=== PATIENT | female | born 1970 | race Caucasian/White ===

== ENCOUNTER 2017-02-09 21:56 | Emergency (ER) | payer OTHER ==
--- NOTE | 2017-02-09 23:00 | ED Physician Documentation ---
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 She was having fevers, las week, Tmax 102, but not for the past few days Review of Systems Constitutional: reports: Fever, Chills, Sweats Nose: reports: Rhinorrhea / runny nose, Congestion, Sinus pressure / pain Throat: reports: Sore throat Cardiac: reports: Reviewed and negative Respiratory: reports: Dyspnea, Cough GI: reports: Vomiting. denies: Abdominal Pain, Nausea PD PAST MEDICAL HISTORY - Past Medical History Past Medical History: Yes Musculoskeletal: Osteoarthritis, Rheumatoid arthritis, Other - Past Surgical History Past Surgical History: Yes General: Other Ortho: Other - Present Medications Home Medications: Ambulatory Orders Medication Instructions Recorded Confirmed Azithromycin [Zithromax] 250 mg PO DAILY #4 tablet 02/10/17 guaiFENesin/CODEINE [Robitussin AC] 5 - 10 ml PO Q6H PRN #100 udc 02/10/17 - Allergies Allergies/Adverse Reactions: Allergies Allergy/AdvReac Type Severity Reaction Status Date / Time bee venom protein (honey bee) Allergy Anaphylaxis Verified 02/09/17 23:22 hornet venom Allergy Anaphylaxis Verified 02/09/17 23:22 - Social History Does the pt smoke?: No Smoking Status: Never smoker Does the pt drink ETOH?: No Does the pt have substance abuse?: No - Immunizations Immunizations are current?: Yes - POLST Patient has POLST: No PD ED PE NORMAL - Vitals Vital signs reviewed: Yes - General General: Alert and oriented X 3, Well developed/nourished, Other (frequent coughing during H+P) - HEENT HEENT: PERRL, EOMI, Ears normal, Moist mucous membranes, Pharynx benign, Other ( right eye mild conjunctival injection) - Neck Neck: Supple, no meningeal sign - Cardiac Cardiac: RRR, No murmur - Respiratory Respiratory: No respiratory distress, Clear bilaterally - Abdomen Abdomen: Soft, Non tender - Derm Derm: Normal color, Warm and dry - Extremities Extremities: No edema Results - Vitals Vitals: Vital Signs - 24 hr 02/09/17 02/09/17 02/10/17 22:01 22:17 00:21 Temperature 36.8 C Heart Rate 104 H 99 113 H Respiratory 24 18 18 Rate Blood Pressure 133/61 H 128/60 O2 Saturation 99 96 100 02/10/17 00:24 Temperature Heart Rate 100 Respiratory 20 Rate Blood Pressure O2 Saturation 100 Oxygen O2 Source Room air - Rads (name of study) chest xray Radiology: Prelim report reviewed, See rad report PD MEDICAL DECISION MAKING - ED course Complexity details: reviewed results, re-evaluated patient, considered differential, d/w patient Departure - Departure Disposition: 01 Home, Self Care Clinical Impression: Sinusitis, Pneumonia Condition: Good Instructions: ED Pneumonia Adult Follow-Up: CAPRICE GONZALEZ [Primary Care Provider] - (3-5 days if not improved) Prescriptions: guaiFENesin/CODEINE [Robitussin AC] 5 - 10 ml PO Q6H PRN #100 udc PRN Reason: Cough Azithromycin [Zithromax] 250 mg PO DAILY #4 tablet Discharge Date/Time: 02/10/17 01:03
[2017-02-09] MEDS ORDERED: guaiFENesin/CODEINE 5 ML UDC PO STA (23:18)
[2017-02-09] MEDS ORDERED: guaiFENesin/CODEINE 5 ML UDC ONE (23:20)
--- NOTE | 2017-02-09 23:53 | XRAY Preliminary Report ---
Exam: XR Chest 2 View PA/LAT IMPRESSION: Normal single view chest x-ray. [facility] SITE ID: [id number]
--- NOTE | 2017-02-09 23:56 | XRAY Report ---
EXAM: CHEST RADIOGRAPHY EXAM DATE: 02/09/2017 11:43 PM. CLINICAL HISTORY: Dyspnea, cough. COMPARISON: None. TECHNIQUE: 1 views. FINDINGS: Lungs/Pleura: No focal opacities evident. No pleural effusion. No pneumothorax. Normal volumes. Mediastinum: Heart and mediastinal contours are unremarkable. Other: None. IMPRESSION: Normal single view chest x-ray. [facility] Referring Provider Line: [phone] SITE ID: [id number]
[2017-02-10 00:23] VITALS: BP 128/60
[2017-02-10] MEDS ORDERED: AZITHROMYCIN 250 MG TABLET PO STA (00:58)
[2017-02-10] MEDS ORDERED: AZITHROMYCIN 250 MG TABLET PO ONE (01:00)
== END 2017-02-10 01:03 | disposition home or self-care (01) ==
LOC: ED 21:56
DX: J18.9 Pneumonia, unspecified organism (principal); J32.9 Chronic sinusitis, unspecified
CPT/HCPCS: 71020; 99283; A9270

== ENCOUNTER 2018-08-17 13:10 | Emergency (ER) | payer OTHER ==
[2018-08-17] MEDS ORDERED: METHOCARBAMOL 500 MG TABLET PO STA (13:41)
[2018-08-17] MEDS ORDERED: KETOROLAC 30 MG/ML VIAL IM STA (13:41)
[2018-08-17] MEDS ORDERED: HYDROmorphone 2 MG/ML VIAL IM STA (13:41)
[2018-08-17] MEDS ORDERED: DEXAMETHASONE 10 MG/ML VIAL PO STA (13:41)
[2018-08-17] MEDS ORDERED: ACETAMINOPHEN 325 MG TABLET PO STA (13:42)
--- NOTE | 2018-08-17 14:33 | ED Physician Documentation ---
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 No: Prior back surgery Similar symptoms before: Diagnosis (low back strain) Recently seen: Not recently seen Review of Systems Constitutional: denies: Fever, Myalgias Nose: denies: Rhinorrhea / runny nose, Congestion Throat: denies: Sore throat Respiratory: denies: Cough GI: denies: Vomiting, Diarrhea Skin: denies: Rash, Lesions Neurologic: denies: Focal weakness, Numbness, Headache PD PAST MEDICAL HISTORY - Past Medical History Past Medical History: Yes Musculoskeletal: Osteoarthritis, Rheumatoid arthritis, Other - Past Surgical History Past Surgical History: Yes General: Other Ortho: Other - Present Medications Home Medications: Ambulatory Orders Medication Instructions Recorded Confirmed Dexamethasone [Decadron] 4 mg PO DAILY #5 tablet 08/17/18 Hydrocodone/Acetaminophen [[place] 1 each PO Q6H PRN #20 tablet 08/17/18 5-325 Tablet] Methocarbamol [Robaxin] 500 mg PO Q6H PRN #30 tablet 08/17/18 Naproxen 500 mg PO BID #20 tablet 08/17/18 - Allergies Allergies/Adverse Reactions: Allergies Allergy/AdvReac Type Severity Reaction Status Date / Time bee venom protein (honey bee) Allergy Anaphylaxis Verified 08/17/18 13:18 hornet venom Allergy Anaphylaxis Verified 08/17/18 13:18 - Social History Does the pt smoke?: No Smoking Status: Never smoker Does the pt drink ETOH?: No Does the pt have substance abuse?: No - Immunizations Immunizations are current?: Yes - POLST Patient has POLST: No PD ED PE NORMAL - Vitals Vital signs reviewed: Yes - General General: Alert and oriented X 3, Well developed/nourished, Other (appears uncomfortable and has guarded low back motion. ) - Cardiac Cardiac: RRR, No murmur - Respiratory Respiratory: Clear bilaterally - Abdomen Abdomen: Soft, Non tender - Back Back: No CVA TTP, No spinal TTP, Other (tender lower back soft tissue both sides in lumbar area. ) - Derm Derm: Normal color, Warm and dry, No rash - Extremities Extremities: No tenderness to palpate, Normal ROM s pain, No edema, No calf tenderness / cord - Neuro Neuro: Alert and oriented X 3, No motor deficit, No sensory deficit, Normal speech Results - Vitals Vitals: Vital Signs - 24 hr 08/17/18 08/17/18 13:16 14:34 Temperature 36.7 C Heart Rate 79 76 Respiratory 18 15 Rate Blood Pressure 120/53 L 105/70 O2 Saturation 99 99 Oxygen O2 Source Room air PD MEDICAL DECISION MAKING - ED course Complexity details: re-evaluated patient (pain lessened with meds. ), considered differential (seems muscle strain vs disc process. No indication for imaging emergently. ), d/w patient Departure - Departure Disposition: Home, Self Care Clinical Impression: Low back strain Qualifiers: Encounter type: initial encounter Qualified Code(s): S39.012A - Strain of muscle, fascia and tendon of lower back, initial encounter Condition: Stable Record reviewed to determine appropriate education?: Yes Instructions: ED Sprain Strain Lumbar Follow-Up: Juan Barber ARNP [Primary Care Provider] - Prescriptions: Dexamethasone [Decadron] 4 mg PO DAILY #5 tablet Hydrocodone/Acetaminophen [[place] 5-325 Tablet] 1 each PO Q6H PRN #20 tablet PRN Reason: Pain Methocarbamol [Robaxin] 500 mg PO Q6H PRN #30 tablet PRN Reason: Spasms Naproxen 500 mg PO BID #20 tablet Comments: Heat and gentle stretching for the low back. Minimize activity for the next few days until improved. Naproxen twice daily for the next 7-10 days. Decadron steroid anti-inflammatory daily for 5 more days. Methocarbamol as a muscle relaxant and use it every 6-8 hours if needed for spasms. Add Tylenol or hydrocodone if needed for worse pain. Recheck if not improving over the next several days to a week. If not improving, may need to change medicines or add physical therapy. Meanwhile massage or chiropractic are good treatments as well. Discharge Date/Time: 08/17/18 14:50
[2018-08-17 14:35] VITALS: BP 105/70
== END 2018-08-17 14:50 | disposition home or self-care (01) ==
LOC: ED 13:10
DX: S39.012A Strain of muscle, fascia and tendon of lower back, initial encounter (principal); X50.9XXA Other and unspecified overexertion or strenuous movements or postures, initial encounter; Y93.89 Activity, other specified; Y99.0 Civilian activity done for income or pay
CPT/HCPCS: 96372; 99283; A9270; J1170

== ENCOUNTER 2018-12-24 21:31 | Emergency (ER) | payer OTHER ==
--- NOTE | 2018-12-24 21:52 | ED Physician Documentation ---
PD HPI LOWER EXT INJURY - Stated complaint Stated Complaint: R FOOT PX - Chief complaint Chief Complaint: Ext Problem - History obtained from History obtained from: Patient - History of Present Illness PD HPI LOW EXT INJURY LOCATION: Right (She dropped a drill in the proximal right foot at home at about 6 PM and has moderate to severe pain there and declines pain medications. She can walk.) Review of Systems Constitutional: reports: Reviewed and negative Cardiac: reports: Reviewed and negative Respiratory: reports: Reviewed and negative PD PAST MEDICAL HISTORY - Past Medical History Musculoskeletal: Osteoarthritis, Rheumatoid arthritis, Other - Past Surgical History Past Surgical History: Yes General: Other Ortho: Other - Present Medications Home Medications: Ambulatory Orders Medication Instructions Recorded Confirmed No Known Home Medications 12/24/18 12/24/18 - Allergies Allergies/Adverse Reactions: Allergies Allergy/AdvReac Type Severity Reaction Status Date / Time bee venom protein (honey bee) Allergy Anaphylaxis Verified 12/24/18 21:37 hornet venom Allergy Anaphylaxis Verified 12/24/18 21:37 - Social History Does the pt smoke?: No Smoking Status: Never smoker Does the pt drink ETOH?: No Does the pt have substance abuse?: No - Immunizations Immunizations are current?: Yes - POLST Patient has POLST: No PD ED PE NORMAL - Vitals Vital signs reviewed: Yes - General General: Alert and oriented X 3, No acute distress - Neck Neck: Supple, no meningeal sign, No bony TTP - Extremities Extremities: Other (She has kind of diffuse tenderness over the foot, she points the proximal first metatarsal as the area of the worst pain, there is no obvious swelling or deformity.) - Neuro Neuro: Alert and oriented X 3, Normal speech - Psych Psych: Normal mood Results - Vitals Vitals: Vital Signs - 24 hr 12/24/18 21:34 Temperature 36.5 C Heart Rate 94 Respiratory 18 Rate Blood Pressure 112/72 O2 Saturation 100 Oxygen O2 Source Room air - Rads (name of study) R foot 3v Radiology: EMP read contemporaneously (NAD) Departure - Departure Disposition: 01 Home, Self Care Clinical Impression: Contusion of right foot Qualifiers: Encounter type: initial encounter Qualified Code(s): S90.31XA - Contusion of right foot, initial encounter Condition: Good Record reviewed to determine appropriate education?: Yes Instructions: ED Contusion Foot Comments: Ibuprofen as needed for pain. You can walk and bear weight as tolerated. Follow-up with your doctor in 1-2 weeks if still symptomatic.
--- NOTE | 2018-12-24 22:20 | XRAY Report ---
Reason: foot injury Procedure Date: 12/24/2018 Accession Number: [id number] / [id number] Procedure: XR - Foot 3 View RT CPT Code: FULL RESULT: EXAM: RIGHT FOOT RADIOGRAPHY EXAM DATE: 12/24/2018 09:59 PM. CLINICAL HISTORY: Foot injury. COMPARISON: None available. TECHNIQUE: 3 views. FINDINGS: Bones: No acute fracture or dislocation. There are accessory ossicles adjacent to the navicular and cuboid. Small degenerative calcaneal spurring at the plantar and posterior surfaces. Joints: No ankle joint effusion. No significant degenerative joint disease. Soft Tissues: Unremarkable. No radiopaque foreign body. IMPRESSION: No acute fracture or dislocation of the right foot. [facility]
[2018-12-24 22:27] VITALS: BP 116/77
== END 2018-12-24 22:27 | disposition home or self-care (01) ==
LOC: ED 21:31
DX: S90.31XA Contusion of right foot, initial encounter (principal); W22.8XXA Striking against or struck by other objects, initial encounter; Y92.009 Unspecified place in unspecified non-institutional (private) residence as the place of occurrence of the external cause; M06.9 Rheumatoid arthritis, unspecified
CPT/HCPCS: 99282; 99283

== ENCOUNTER 2019-12-08 16:46 | Outpatient (CLI) | payer OTHER | END 2019-12-08 16:47 | disposition home or self-care (01) | LOC: COV 16:46 | PROVIDERS: ATTEND Family Medicine | DX: R05 Cough (principal); R50.9 Fever, unspecified | CPT/HCPCS: 81599 ==

== ENCOUNTER 2019-12-10 17:10 | Outpatient (CLI) | payer OTHER | END 2019-12-10 17:11 | disposition home or self-care (01) | LOC: COV 17:10 | PROVIDERS: ATTEND Family Medicine | DX: R05 Cough (principal); R50.9 Fever, unspecified ==

== ENCOUNTER 2022-10-10 16:34 | Emergency (ER) | payer OTHER ==
--- NOTE | 2022-10-10 17:04 | ED Physician Documentation ---
PD HPI MAJOR TRAUMA - Stated complaint Stated Complaint: FALL DOWN STAIRS - Chief complaint Chief Complaint: Trauma Ext - History obtained from History obtained from: Patient - Additional information Additional information: Caught left toe while taking out the trash and went down on ankle/knee/hip, all L side..Pain is severe in all areas. No other injuries. PD PAST MEDICAL HISTORY - Past Medical History Musculoskeletal: Osteoarthritis, Rheumatoid arthritis, Other - Past Surgical History Past Surgical History: Yes General: Other Ortho: Other - Present Medications Home Medications: Ambulatory Orders Medication Instructions Recorded Confirmed Amox/Clav 875/125 [Augmentin] 1 each PO Q12H #20 tablet 04/20/22 Azithromycin [Zithromax] 0 mg PO DAILY #6 tablet 04/20/22 Benzonatate [Tessalon] 200 mg PO TID PRN #20 cap 04/20/22 Oxycodone HCl/Acetaminophen 1 - 2 each PO Q6H PRN #14 tablet 10/10/22 [Percocet 5-325 mg Tablet] - Allergies Allergies/Adverse Reactions: Allergies Allergy/AdvReac Type Severity Reaction Status Date / Time bee venom protein (honey bee) Allergy Anaphylaxis Verified 10/10/22 16:36 hornet venom Allergy Anaphylaxis Verified 10/10/22 16:36 - Social History Does the pt smoke?: No Smoking Status: Never smoker Does the pt drink ETOH?: No Does the pt have substance abuse?: No - Immunizations Immunizations are current?: Yes - POLST Patient has POLST: No PD ED PE NORMAL - Vitals Vital signs reviewed: Yes - General General: Alert and oriented X 3, No acute distress - HEENT HEENT: PERRL, EOMI - Neck Neck: Supple, no meningeal sign, No bony TTP - Abdomen Abdomen: Non tender - Back Back: No spinal TTP - Extremities Extremities: Other (Tender to the lateral malleolus of the left ankle, no foot tenderness. She is quite tender over the proximal fibula and anterior knee and left hip as well and cannot range any of them. No tenderness of the mid tibia on the left.) - Neuro Neuro: Alert and oriented X 3, Normal speech Results - Vitals Vitals: Vital Signs - 24 hr 10/10/22 10/10/22 10/10/22 16:36 18:58 19:20 Temperature 36.5 C Heart Rate 78 62 57 L Respiratory 18 15 Rate Blood Pressure 127/52 L 112/83 H 102/57 L O2 Saturation 100 94 96 Oxygen O2 Source Room air PD Medical Decision Making - ED course ED course: 52-year-old woman presents after a fall, predominantly left leg injuries with negative x-rays. Still a lot of pain after oxycodone and was medicated with Dilaudid. Toradol had also been ordered but she had a vagal reaction with the Dilaudid and as such further injections were held. At about 7:45 PM she was pain-free and passed road test with a walker. She had some nausea from the Dilaudid but declined medication for that. Departure - Departure Disposition: 01 Home, Self Care Clinical Impression: Strain of left hip Qualifiers: Encounter type: initial encounter Qualified Code(s): S76.012A - Strain of muscle, fascia and tendon of left hip, initial encounter Left ankle sprain Qualifiers: Encounter type: initial encounter Involved ligament of ankle: unspecified ligament Qualified Code(s): S93.402A - Sprain of unspecified ligament of left ankle, initial encounter Left knee sprain Qualifiers: Encounter type: initial encounter Involved ligament of knee: unspecified ligament Qualified Code(s): S83.92XA - Sprain of unspecified site of left knee, initial encounter Condition: Good Record reviewed to determine appropriate education?: Yes Instructions: ED Sprain Knee, ED Sprain Ankle W X Ray, ED Sprain Hip Prescriptions: Oxycodone HCl/Acetaminophen [Percocet 5-325 mg Tablet] 1 - 2 each PO Q6H PRN #14 tablet PRN Reason: pain Comments: If not significantly, significantly better in a week please follow-up with your primary care physician for reexamination and consideration for repeat imaging. Return for new or worsening symptoms. I sent prescription electronically to [facility] in [place]. I am prescribing a short course of narcotic pain medication for you. These are potentially dangerous and addictive medications that should be used carefully. These medications may constipate you. Take an kerb-yun-xzrnlxy stool softener (docusate) twice daily with plenty of water while taking these medications. If you go 24 hours without a bowel movement, take ojsu-dbf-xxeokvs miralax, per package instructions. Do not drink or drive while taking these medications. If you received narcotic or sedating medications while in the emergency department, do not drive for 24 hours. Store this medication in a safe, secure place and out of reach of children. It is a violation of federal law to give or sell this medication to another person or to use in a manner other than prescribed. The ED will not refill narcotic prescriptions, including prescriptions lost or stolen. To dispose of unwanted medications: 1. [facility] at [address] in [place] has a medication drop box. They accept prescription medications (in pill form) Sunday through Sunday 9:00 a.m. to 5:00 p.m. 2. The [facility] [employer] accepts prescription medications (in pill form only) for disposal year round. Call for more information. 3. Contact the [facility] for the next [facility] sponsored prescription drug collection event. , [phone], or [phone]; Note that many narcotic pain relievers also contain Tylenol/acetaminophen. Please ensure that your total dose of acetaminophen from all sources does not exceed 3 g (3000 mg) per day.
[2022-10-10] MEDS ORDERED: oxyCODONE 5 MG TABLET PO STA (17:06)
--- NOTE | 2022-10-10 18:12 | XRAY Report ---
PROCEDURE: Ankle 3 View LT INDICATIONS: fall knee/ankle inj TECHNIQUE: 3 views of the ankle were acquired. COMPARISON: None FINDINGS: Bones: No fractures or dislocations. Ankle mortise is normally aligned. No suspicious bony lesions . Soft tissues: No tibiotalar joint effusion. Achilles tendon appears normal. IMPRESSION: No visualized acute fracture or dislocation. However, occult injury cannot be excluded. Recommend short interval imaging follow-up in 7-10 days as clinically indicated for additional evalua tion. Reviewed by: Lynda Elmore MD on 10/10/2022 6:10 PM [facility] Approved by: Lynda Elmore MD on 10/10/2022 6:10 PM [facility] Station ID: [id number]
--- NOTE | 2022-10-10 18:12 | XRAY Report ---
PROCEDURE: Knee 4 View LT INDICATIONS: fall knee/ankle inj TECHNIQUE: 4 views of the left knee(s) were acquired. COMPARISON: None. FINDINGS: Bones: No fractures or dislocations. No suspicious bony lesions. Soft tissues: No joint effusion. No suspicious soft tissue calcifications. IMPRESSION: No visualized acute fracture or dislocation. However, occult injury cannot be excluded. Recommend short interval imaging follow-up in 7-10 days as clinically indicated for additional evalua tion. Reviewed by: Lynda Elmore MD on 10/10/2022 6:11 PM PST Approved by: Lynda Elmore MD on 10/10/2022 6:11 PM PST Station ID: [id number]
--- NOTE | 2022-10-10 18:13 | XRAY Report ---
PROCEDURE: Hip w/Pelvis 2-3V LT INDICATIONS: fall knee/ankle inj TECHNIQUE: AP pelvis with lateral view(s) of the left hip(s). COMPARISON: None. FINDINGS: Bones: No fractures or dislocations. Pelvic ring appears intact. No suspicious bony lesions. Soft tissues: The visualized bowel gas pattern is normal. No suspicious soft tissue calcifications. IMPRESSION: No visualized acute fracture or dislocation. However, occult injury cannot be excluded. Recommend short interval imaging follow-up in 7-10 days as clinically indicated for additional evalua tion. Reviewed by: Lynda Elmore MD on 10/10/2022 6:12 PM PST Approved by: Lynda Elmore MD on 10/10/2022 6:12 PM PST Station ID: [id number]
[2022-10-10] MEDS ORDERED: KETOROLAC 60 MG/2 ML VIAL IM STA (18:25)
[2022-10-10] MEDS ORDERED: HYDROmorphone 1 MG/ML CARPUJECT IM STA (18:25)
[2022-10-10 19:49] VITALS: BP 100/65
[2022-10-10] MEDS ORDERED: oxyCODONE/ACET 5/325 Prepack 4 PO STA (19:50)
[2022-10-10] MEDS ORDERED: ONDANSETRON ODT 4 MG TABLET TL STA (19:58)
== END 2022-10-10 20:18 | disposition home or self-care (01) ==
LOC: ED 16:34
DX: S76.012A Strain of muscle, fascia and tendon of left hip, initial encounter (principal); S93.402A Sprain of unspecified ligament of left ankle, initial encounter; S83.92XA Sprain of unspecified site of left knee, initial encounter; W10.9XXA Fall (on) (from) unspecified stairs and steps, initial encounter
CPT/HCPCS: 73502; 73564; 73610; 96372; 99283; 99284; A9270; J1170; Q0162

== ENCOUNTER 2023-11-03 07:45 | Outpatient (CLI) | payer OTHER | END 2023-11-03 07:46 | disposition critical access hospital (66) | LOC: EMS 07:45 | DX: M79.662 Pain in left lower leg (principal); M79.89 Other specified soft tissue disorders; R20.8 Other disturbances of skin sensation; R20.0 Anesthesia of skin; R07.9 Chest pain, unspecified; R42 Dizziness and giddiness | CPT/HCPCS: A0425; A0429 ==

== ENCOUNTER 2023-11-03 08:03 | Emergency (ER) | payer OTHER ==
--- NOTE | 2023-11-03 08:23 | ED Physician Documentation ---
History of Present Illness - Stated complaint Stated Complaint: L LEG PX/SWELLING - Chief complaint Chief Complaint: Ext Problem - History obtained from History obtained from: Patient, EMS - History of Present Illness Timing: Last night - Additonal information Additional information: Anaid Laurent is a 53-year-old female with a history of rheumatoid arthritis who presents this morning with the acute onset of left leg pain and swelling that extends from her hip to her toes. She is having enough pain that she is having difficulty walking on her left leg. She has not had this happen to her previously. She is having some intermittent chest pains as well. Symptoms started last night. She denies any prior similar history she denies any period of confinement or recent injury to the area. She has a family history of breast cancer she has had a normal mammogram 2 years ago. She has a negative review of systems with the exception of some pelvic cramping which she attributes to menses. Review of Systems Constitutional: denies: Fever, Chills, Myalgias Eyes: denies: Decreased vision Ears: reports: Ear pain (Intense left ear pain after a sneeze several days ago resolved.) Nose: denies: Rhinorrhea / runny nose, Congestion Throat: denies: Sore throat Cardiac: reports: Chest pain / pressure (Intermittent sharp chest pains nonspecific) Respiratory: denies: Dyspnea, Cough GI: reports: Abdominal Pain (Mild cramping left lower quadrant similar to menstrual cramps). denies: Nausea, Vomiting : denies: Dysuria, Frequency Skin: denies: Rash Musculoskeletal: reports: Extremity pain, Extremity swelling, Pain with weight bearing. denies: Neck pain, Back pain Neurologic: denies: Generalized weakness, Focal weakness, Numbness PD PAST MEDICAL HISTORY - Past Medical History Past Medical History: Yes Musculoskeletal: Osteoarthritis, Rheumatoid arthritis, Other - Past Surgical History Past Surgical History: Yes General: Other Ortho: Other - Present Medications Home Medications: Ambulatory Orders Medication Instructions Recorded Confirmed HYDROcod/ACETAM 5/325 [Tyler 5/325] 1 - 2 tablet PO Q6H PRN #14 tablet 11/03/23 Rivaroxaban [Xarelto] 15 mg PO BID #42 tablet 11/03/23 - Allergies Allergies/Adverse Reactions: Allergies Allergy/AdvReac Type Severity Reaction Status Date / Time bee venom protein (honey bee) Allergy Anaphylaxis Verified 11/03/23 08:13 hornet venom Allergy Anaphylaxis Verified 11/03/23 08:13 - Social History Does the pt smoke?: No Smoking Status: Never smoker Does the pt drink ETOH?: No Does the pt have substance abuse?: No - Immunizations Immunizations are current?: Yes - POLST Patient has POLST: No PD ED PE NORMAL - Vitals Vital signs reviewed: Yes (Hypertensive) - General General: Alert and oriented X 3, Well developed/nourished, Other (The patient appears to be in pain with addresser tone and flattened affect) - HEENT HEENT: Atraumatic, PERRL, EOMI - Neck Neck: Supple, no meningeal sign, No bony TTP - Cardiac Cardiac: RRR, No murmur - Respiratory Respiratory: No respiratory distress, Other (Diminished breath sounds bilaterally) - Abdomen Abdomen: Normal bowel sounds, Soft, Non tender, Non distended, No organomegaly - Back Back: No CVA TTP, No spinal TTP - Derm Derm: Normal color, Warm and dry, No rash - Extremities Extremities: No deformity, Other (There is swelling to the left lower extremity that is generalized and tender. No significant erythema although the patient brings in a photograph showing erythema last night extending from the thigh to the foot mild. She has a positive Homans' sign.) - Neuro Neuro: Alert and oriented X 3, marketing project manager 2-12 intact, No motor deficit, No sensory deficit, Normal speech Eye Opening: Spontaneous Motor: Obeys Commands Verbal: Oriented GCS Score: 15 - Psych Psych: Normal mood Results - Vitals Vitals: Vital Signs - 24 hr 11/03/23 11/03/23 11/03/23 08:10 08:26 10:09 Temperature 36.4 C L Heart Rate 82 81 76 Respiratory 18 16 16 Rate Blood Pressure 138/86 H 145/74 H 127/68 O2 Saturation 100 100 99 Oxygen O2 Source Room air - EKG (time done) 0825 EKG releavant findings:: EKG personally interpreted by author of this note. Relevant findings are: Rate: Rate (enter#) (77) Rhythm: NSR Ischemia: Non specific changes (borderline T abnormalities ) Compare to prior EKG: Old EKG unavailable Computer interpretation: Agree with computer - Labs Labs: Laboratory Tests 02/17/24 02/17/24 02/17/24 08:35 08:35 08:35 WBC 11.6 H RBC 4.54 Hgb 10.5 L Hct 34.9 L MCV 76.9 L MCH 23.1 L MCHC 30.1 L RDW 18.8 H Plt Count 267 MPV 10.5 Neut # (Auto) 9.8 H Lymph # (Auto) 1.0 L Sanders # (Auto) 0.6 Eos # (Auto) 0.1 Baso # (Auto) 0.0 Absolute Nucleated RBC 0.00 Nucleated RBC % 0.0 PT 13.4 H INR 1.2 APTT 25.4 D-Dimer Sodium 136 Potassium 3.7 Chloride 104 Carbon Dioxide 24 Anion Gap 8.0 BUN 9 Creatinine 0.8 Estimated GFR (MDRD) 75 L Glucose 137 H Calcium 9.3 Total Bilirubin 0.5 AST 11 ALT 11 Alkaline Phosphatase 102 Total Protein 7.4 Albumin 4.5 Globulin 2.9 Albumin/Globulin Ratio 1.6 Lipase 18 11/03/23 08:35 WBC RBC Hgb Hct MCV MCH MCHC RDW Plt Count MPV Neut # (Auto) Lymph # (Auto) Sanders # (Auto) Eos # (Auto) Baso # (Auto) Absolute Nucleated RBC Nucleated RBC % PT INR APTT D-Dimer > 1050.0 H Sodium Potassium Chloride Carbon Dioxide Anion Gap BUN Creatinine Estimated GFR (MDRD) Glucose Calcium Total Bilirubin AST ALT Alkaline Phosphatase Total Protein Albumin Globulin Albumin/Globulin Ratio Lipase - Rads (name of study) Venous duplex Relevant Findings:: Prelim report reviewed (Impression: Extensive left lower extremity deep venous thrombosis), EMP independent interpretation of test CTA chest Relevant Findings:: Prelim report reviewed (Impression: No pulmonary embolus. No significant pulmonary abnormality can be seen.), EMP independent interpretation of test PD Medical Decision Making - ED course Complexity details: considered differential, d/w patient ED course: 53-year-old female presents to the emergency department with left lower extremity swelling that is significant and a positive Homans' sign. Occurring last night. She has had intermittent chest pains as well. Today IV access is obtained in the field and in the ED labs are drawn imaging studies of the left lower extremity for DVT and CTA of the chest for PE are ordered and the patient is administered dose of Lovenox subcu. Her presentation is concerning for a significant DVT. She is administered Toradol for pain control. At presentation she is not hypoxic nor dyspneic but a significant clot burden is suspected in the leg. Ultrasound is performed showing clot all the way to the iliac.The patient has pain to the lower extremity swelling to the lower extremity she has normal color today to the leg and the foot is warm with normal capillary refill. I considered consultation with vascular for the potential of thrombolysis but it appears she does not have an indication. She does not have evidence of limb ischemia. She has been given the so Lovenox subcu today and we will place her on Xarelto bid and have her follow up at [facility]. Departure - Departure Disposition: Home, Self Care Clinical Impression: Deep vein thrombosis Qualifiers: DVT location: lower extremity Affected thrombotic vein of extremity: iliac Chronicity: acute Laterality: left Qualified Code(s): I82.422 - Acute embolism and thrombosis of left iliac vein Condition: Stable Instructions: ED DVT, Rivaroxaban oral tablets Follow-Up: [facility] [Provider Group] Prescriptions: HYDROcod/ACETAM 5/325 [Tyler 5/325] 1 - 2 tablet PO Q6H PRN #14 tablet PRN Reason: Pain Rivaroxaban [Xarelto] 15 mg PO BID #42 tablet Comments: Anaid, today it looks like you have an extensive deep vein thrombosis in your left leg. This may be from prolonged sitting at your computer. Deep vein thrombosis is a potentially life-threatening condition. We have given you a dose of Lovenox today and we are recommending you begin anticoagulation with an oral medication. I have E scribed Xarelto to the [facility] in [place]. You will need to take this as 15 mg twice per day for 3 weeks and then switch to a 20 mg once daily dose. A follow-up with your primary care doctor is indicated to renew this prescription. Do not let the prescription lapse. You may need continued anticoagulation or may need it only for 3 months and further workup is indicated by a sanitary napkin machine tender. Follow-up with your primary for a referral. I have E scribed some pain medication for your use as well.
[2023-11-03] MEDS: ENOXAPARIN 100 MG/ML SYRINGE SUBQ STA (08:40)
[2023-11-03 08:46] LABS: BASOPHILS % (AUTO) 0.3 %; EOSINOPHILS # (AUTO) 0.1 10^3/uL (0.0-0.7); EOSINOPHILS % (AUTO) 0.6 %; HCT - HEMATOCRIT 34.9 % (37.0-47.0); HGB - HEMOGLOBIN 10.5 g/dL (12.0-16.0); MEAN CORPUSCULAR HEMOGLOBIN 23.1 pg (27.0-31.0); MEAN CORPUSCULAR HGB CONC 30.1 g/dL (32.0-36.0); MEAN CORPUSCULAR VOLUME 76.9 fL (81.0-99.0); MEAN PLATELET VOLUME 10.5 fL (7.9-10.8); MONOCYTES # (AUTO) 0.6 10^3/uL (0.0-1.0); MONOCYTES % (AUTO) 5.4 %; NEUTROPHILS # (AUTO) 9.8 10^3/uL (1.5-6.6); NEUTROPHILS % (AUTO) 84.4 %; PLT - PLATELET COUNT 267 10^3/uL (130-450); RED BLOOD COUNT 4.54 10^6/uL (4.20-5.40); RED CELL DISTRIBUTION WIDTH 18.8 % (12.0-15.0); WHITE BLOOD COUNT 11.6 x10^3/uL (4.8-10.8)
[2023-11-03 09:02] LABS: ALBUMIN 4.5 g/dL (3.2-5.5); ALBUMIN/GLOBULIN RATIO 1.6 (1.0-2.2); BILIRUBIN,TOTAL 0.5 mg/dL (0.2-1.0); CALCIUM 9.3 mg/dL (8.5-10.3); CREATININE 0.8 mg/dL (0.6-1.3); POTASSIUM 3.7 mmol/L (3.5-4.5); TOTAL PROTEIN 7.4 g/dL (6.4-8.9)
[2023-11-03 09:04] LABS: PARTIAL THROMBOPLASTIN TIME 25.4 secs (24.9-33.3)
[2023-11-03] MEDS ORDERED: iohexoL-300 100 ML VIAL ONE (09:05)
[2023-11-03 09:08] LABS: INR 1.2 (0.8-1.2); PT - PROTHROMBIN TIME 13.4 secs (9.9-12.6)
[2023-11-03] MEDS: iohexoL-300 100 ML VIAL IVP ONE (09:36)
--- NOTE | 2023-11-03 09:44 | CT Report ---
PROCEDURE: Angio Chest INDICATIONS: PE study intermittant chest pain L swollen leg CONTRAST: 80ml omni 300 TECHNIQUE: After the administration of intravenous contrast, 2 mm axial images were acquired from the pulmonary apices to the posterior costophrenic angles during the arterial phase. In addition, 1 mm lung kernel and 5 mm soft tissue kernel reconstructions were performed. 3-dimensional coronal oblique maximum int ensity projection (MIP) reformats, 8 mm axial MIP, and 5 mm coronal and sagittal MPR reformats were t hen performed through the thorax. For radiation dose reduction, the following was used: automated exp osure control, adjustment of mA and/or kV according to patient size. COMPARISON: Correlation is made with plain film, 04/20/2022. FINDINGS: Image quality: Diagnostic. Large vessels: No filling defects within the opacified pulmonary arteries, accounting for motion and contrast timing. No evidence of acute aortic syndrome or aortic aneurysm. Lungs and pleura: No consolidation. No pleural effusions. No pneumothorax. No suspicious pulmonary n odules which require follow up. Mediastinum: Heart size is normal. No pericardial effusion. No large vessel abnormality. No mediastin al adenopathy by size criteria. Chest wall and lower neck: Thyroid is unremarkable. No axillary or supraclavicular adenopathy by size . Bones: No aggressive osseous abnormality. Upper Abdomen: An accessory splenule is incidentally noted along the hilum of the primary spleen. T he visualized portions of the upper abdominal structures are otherwise within normal limits. IMPRESSION: No pulmonary embolus. No significant pulmonary abnormality can be seen. Additional findings: Accessory splenule Reviewed by: Zachery Cruz MD on 11/03/2023 8:43 AM [facility] Approved by: Zachery Cruz MD on 11/03/2023 8:43 AM [facility] Station ID: [id number]
[2023-11-03 10:17] VITALS: O2SAT 99
[2023-11-03] MEDS: MORPHINE 2 MG/ML CARPUJECT IVP STA (10:17)
[2023-11-03] MEDS: ONDANSETRON 4 MG/2 ML VIAL IVP STA (10:19)
--- NOTE | 2023-11-03 11:55 | Ultrasound Report ---
PROCEDURE: Duplex Ext Veins Left INDICATIONS: swelling redness and + homans TECHNIQUE: Real-time imaging, as well as color and pulse Doppler interrogation, were performed of the lower extr emity deep veins from the inguinal ligament to the popliteal fossa. Attempted visualization of the ca lf veins was performed. COMPARISON: None. FINDINGS: Extensive left lower extremity venous cirrhosis can be seen from the iliac vein through the femoral vein and into the calf veins. IMPRESSION: Extensive left lower extremity deep venous thrombosis. Note: Concordant preliminary findings given by the quarter supervisor upon the completion of the examination to Dr. Hankins at 11:00 AM on 11/03/2023. Reviewed by: Zachery Cruz MD on 11/03/2023 10:53 AM [facility] Approved by: Zachery Cruz MD on 11/03/2023 10:53 AM [facility] Station ID: [id number]
[2023-11-03 12:12] VITALS: BP 103/78
== END 2023-11-03 12:23 | disposition home or self-care (01) ==
LOC: EDUNIT# → ED 08:03
DX: I82.422 Acute embolism and thrombosis of left iliac vein (principal)
CPT/HCPCS: 36415; 71275; 80053; 83690; 85025; 85379; 85610; 85730; 93005; 93971; 96372; 96374; 96375; 99284; J1650; Q9967